=== PATIENT | male | born 1975 | race African-American/Black ===

== ENCOUNTER 2024-05-27 19:32 | Emergency (ER) | payer SELFPAY ==
[~2024-05-27] VITALS: Ht 175.3 cm; Wt 81.6 kg
[2024-05-27] MEDS ORDERED: hydrALAZINE HCL IV 20 MG VIAL ONE ×2 (20:50→21:47)
[2024-05-27] MEDS: hydrALAZINE HCL IV 20 MG VIAL IV ONE ×2 (20:53→22:00)
[2024-05-27 21:21] LABS: BASOPHILS % (AUTO) 0.4 % (0.0-2.0); EOSINOPHILS % (AUTO) 0.6 % (0.0-6.0); HEMATOCRIT 48 % (39-51); HEMOGLOBIN 16.8 g/dL (13.5-17.5); LYMPHOCYTES # (AUTO) 1.1 K/uL (0.8-4.8); LYMPHOCYTES % (AUTO) 19.7 % (20.0-44.0); MEAN CORPUSCULAR HEMOGLOBIN 31 PG (26.0-33.0); MEAN CORPUSCULAR HGB CONC 35 g/dl (31.0-36.0); MEAN CORPUSCULAR VOLUME 89 fL (80-96); MONOCYTES # (AUTO) 0.6 K/uL (0.1-1.30); MONOCYTES % (AUTO) 10.3 % (2.0-12.0); NEUTROPHILS # (AUTO) 3.8 K/uL (1.8-8.9); PLATELET COUNT (AUTO) 250 K/uL (150-450); RED BLOOD CELL COUNT(AUTO) 5.47 MIL/uL (4.5-6.0); RED CELL DISTRIBUTION WIDTH 13.6 % (11.5-15.0); WHITE BLOOD COUNT (AUTO) 5.4 K/uL (4.3-11.0)
[2024-05-27 21:29] LABS: CALCIUM, SERUM 9.7 mg/dL (8.5-10.1); CARBON DIOXIDE 29 mmol/L (21-32); CHLORIDE 103 mmol/L (98-107); CREATININE 1.2 mg/dL (0.6-1.3); GLUCOSE 117 mg/dL (74-106); POTASSIUM 4.8 mmol/L (3.5-5.1); SODIUM SERUM 140 mmol/L (136-145); UREA NITROGEN, BLOOD 13 mg/dL (7-18)
[2024-05-27] MEDS ORDERED: AMLO-212 PO (21:58)
[2024-05-27 22:14] VITALS: BP 202/120; TEMP 97.9; O2SAT 100
== END 2024-05-27 22:14 | disposition home or self-care (01) ==
LOC: ER 19:38
DX: I10 Essential (primary) hypertension (principal); Z60.2 Problems related to living alone
CPT/HCPCS: 99285; 96374; 71045; 93005; 96376; 85025; 80048; 36415; 84484; J0360 ×2